=== PATIENT | female | born 1975 | race Caucasian/White ===

== ENCOUNTER 2024-09-23 13:20 | Inpatient (IN) | payer BC, OTHER ==
[~2024-09-23] VITALS: Ht 144.8 cm; Wt 45.4 kg
[2024-09-23] MEDS ORDERED: LORAZEPAM 2 MG/1 ML VIAL ONE (13:23)
[2024-09-23] MEDS: LORAZEPAM 2 MG/1 ML VIAL IV ONE (13:26)
[2024-09-23] MEDS ORDERED: DIAZ5TAB PO (13:47)
[2024-09-23] MEDS ORDERED: DIAZEPAM 10 MG/2 ML DISP.SYRIN ONE (13:51)
[2024-09-23 13:59] LABS: PLATELET COUNT (AUTO) 213 K/uL (179-408); RED BLOOD CELL COUNT(AUTO) 4.02 MIL/uL (3.63-4.92); RED CELL DISTRIBUTION WIDTH 12.2 % (12.3-17.7); WHITE BLOOD COUNT (AUTO) 3.8 K/uL (3.8-11.8)
[2024-09-23] MEDS: DIAZEPAM 10 MG/2 ML DISP.SYRIN IV ONE (14:00)
[2024-09-23 14:17] LABS: ASPARTATE AMINOTRANSFERASE 15.0 U/L (15-37); CREATININE 0.7 mg/dL (0.6-1.3); SODIUM SERUM 139.0 mmol/L (136-145); TOTAL PROTEIN, SERUM 7.2 g/dL (6.4-8.2); UREA NITROGEN, BLOOD 13.0 mg/dL (7-18)
[2024-09-23] MEDS: IV NS 1000 ML 1,000 ML IV ONE (14:30)
[2024-09-23 15:59] VITALS: BP 90/66
[2024-09-23 17:09] VITALS: BP 100/56; TEMP 97.7; O2SAT 98
[2024-09-23] MEDS ORDERED: LORAZEPAM 1 MG TABLET PO PRN (18:00)
[2024-09-23] MEDS ORDERED: ONDANSETRON 4 MG/2 ML VIAL IV PRN (18:00)
[2024-09-23] MEDS ORDERED: ACETAMINOPHEN 325 MG TABLET PO PRN (18:00)
[2024-09-23] MEDS ORDERED: HYDROCODONE/APAP 5-325MG TABLET PO PRN (18:00)
[2024-09-23] MEDS ORDERED: LORAZEPAM 2 MG/1 ML VIAL IV PRN (18:45)
[2024-09-23 20:30] VITALS: BP 93/44; TEMP 98.6; O2SAT 93
[2024-09-23 23:40] VITALS: BP 94/53; TEMP 97.8; O2SAT 98
[2024-09-24] MEDS: IV NS 1000 ML 1,000 ML IV PRN (00:47)
[2024-09-24 05:14] VITALS: BP 94/53; TEMP 98.6; O2SAT 98
[2024-09-24] MEDS: PANTOPRAZOLE SODIUM 40 MG TABLET.DR PO SCH (06:19)
[2024-09-24 07:05] LABS: PLATELET COUNT (AUTO) 205 K/uL (179-408); RED BLOOD CELL COUNT(AUTO) 3.69 MIL/uL (3.63-4.92); RED CELL DISTRIBUTION WIDTH 12.2 % (12.3-17.7); WHITE BLOOD COUNT (AUTO) 2.8 K/uL (3.8-11.8)
[2024-09-24 07:30] VITALS: BP 98/52; TEMP 98.5; O2SAT 99
[2024-09-24 07:49] LABS: ASPARTATE AMINOTRANSFERASE 20.0 U/L (15-37); CREATINE KINASE, TOTAL 73.0 U/L (26-192); CREATININE 0.6 mg/dL (0.6-1.3); SODIUM SERUM 143.0 mmol/L (136-145); TOTAL PROTEIN, SERUM 6.7 g/dL (6.4-8.2); UREA NITROGEN, BLOOD 12.0 mg/dL (7-18)
[2024-09-24 12:02] VITALS: BP 99/51; TEMP 98.6; O2SAT 97
== END 2024-09-24 12:10 | disposition home or self-care (01) | DRG 93 ==
LOC: ER 13:20 → TELE3 16:33
PROVIDERS: ADMIT Internal Medicine; ATTEND Internal Medicine
DX: G25.82 Stiff-man syndrome (principal); R00.0 Tachycardia, unspecified; J45.909 Unspecified asthma, uncomplicated; E88.09 Other disorders of plasma-protein metabolism, not elsewhere classified; D72.819 Decreased white blood cell count, unspecified; Z90.49 Acquired absence of other specified parts of digestive tract; Z79.899 Other long term (current) drug therapy
CPT/HCPCS: 36415; 83735; 84100; 84443; 85025; 93005; A4606; A4663; G0378; J2060; J3360; J7040